=== PATIENT | female | born 1960 | race Caucasian/White ===

== ENCOUNTER → 2017-01-31 | Day surgery (SDC) | payer BC ==
[~2017-01-31] MED LIST: ACETAMINOPHEN 1000 MG/100 ML 100 ML IV ONE; ACETAMINOPHEN/HYDROcodone 325 MG/5 MG TAB ONE; BUPIVACAINE/EPINEPHRINE 0.25% PF 30 ML VIAL INFIL ONE; KETOROLAC TROMETHAMINE 30 MG/ML (IVP) VIAL ONE; LACTATED RINGER'S 1000 ML INJ 1,000 ML ONE; LIDOCAINE 2%/EPINEPHrine PF 1:200,000 20ML SDV ONE; MIDAZOLAM HCL 2 MG/2 ML VIAL ONE; ONDANSETRON HCL 4 MG/2 ML VIAL IV PUSH ONE; PROPOFOL 200 MG/20 ML AMP IV ONE; SODIUM CHLORIDE 0.9% INJ 10 ML ONE; ceFAZolin INJ 1,000 MG VIAL ONE
--- NOTE | 2017-01-31 11:51 | TN ---
cc: RICHARD CALLAHAN M.D. DATE OF SURGERY 01/31/2017 PREOPERATIVE DIAGNOSIS Biopsy-proven basal cell carcinoma located on the left nasal ala. POSTOPERATIVE DIAGNOSIS Biopsy-proven basal cell carcinoma located on the left nasal ala. PROCEDURE Wide local excision with frozen section resulting in primary defect of 1.5 cm in diameter. His required a bilobed transcutaneous flap for a secondary defect of 3 x 1.5 cm totaling 6 sq cm. Cartilaginous graft from the left ear otilia. SURGEON Richard Callahan MD ANESTHESIA LMA general. ESTIMATED BLOOD LOSS Minimal. COMPLICATIONS None. DRAINS None. PROCEDURE She was properly consented, marked, properly anesthetized, the skin sterilized with Microcyn and sterile draping applied. Procedure then performed, a wide local excision and sent to pathology for frozen section which failed to demonstrate any further pathology with a defect of 1.5 cm in diameter. A bilobed flap was designed, elevated and rotated into the defect along with a cartilaginous graft from the left ear otilia. The bilobed flap was rotated and inset into the defect after the cartilaginous graft was obtained. The cartilaginous graft was harvested from the left ear otilia through a posterior approach. A strip of 2.5 x 0.5 cm was harvested and put in at the internal rim of the nasal ala. It was secured utilizing 5-0 Monocryl suture. The bilobed flap totaling 6 sq cm was thereafter rotated into the defect and inset utilizing 5-0 Monocryl suture and a 5-0 fast-absorbing gut. The donor site in the posterior aspect of the ear was closed utilizing 5-0 Monocryl suture and a running 5-0 fast-absorbing gut as well. Overall the patient tolerated the procedure tolerated well. Good viability of tissue was noted at the end of the case. The patient was awakened and extubated in the operating room, transferred back to postanesthesia care unit in stable condition. No complications appreciated and the patient tolerated the procedure fairly well. MD MANDY Celeste/GLEN /11:25 AM /11:39 AM [facility]
== END | disposition home or self-care (01) ==
LOC: ESDC 08:44
PROVIDERS: ATTEND Plastic Surgery
DX: C44.311 Basal cell carcinoma of skin of nose (principal)
CPT/HCPCS: 00120; 00300; 14060; 21235; 88305; 88331; J0131; J0690; J1885; J2250; J2405; J3010; J7120